=== PATIENT | male | born 1960 | race Two or more races ===

== ENCOUNTER 2025-04-16 09:56 | Emergency (ER) | payer OTHER ==
[~2025-04-16] VITALS: Ht 182.9 cm; Wt 127.3 kg
[2025-04-16] MEDS ORDERED: HYDR25TA2 PO (10:05)
[2025-04-16] MEDS: MORPHINE SULFATE 4 MG/ML SYRINGE IM ONE (13:14)
[2025-04-16] MEDS: MORPHINE SULFATE 4 MG/ML SYRINGE IVP ONE (16:08)
[2025-04-16] MEDS: ONDANSETRON HCL 4 MG/2 ML VIAL IVP ONE (16:09)
[2025-04-16] MEDS: KETOROLAC TROMETHAMINE 30 MG/ML VIAL IVP ONE (16:09)
[2025-04-16] MEDS ORDERED: NAPR-1196 PO (18:30)
[2025-04-16] MEDS ORDERED: LIDO-57 TP (18:30)
[2025-04-16] MEDS: LIDOCAINE 5% TRANSDERMAL PATCH TD ONE (18:33)
[2025-04-16] MEDS ORDERED: PERCT PO ×2 (19:02→20:19)
[2025-04-16 19:10] VITALS: BP 145/102; PULSE 89; RESP 19; TEMP 97.3; O2SAT 100
== END 2025-04-16 20:50 | disposition home or self-care (01) ==
LOC: EMS 09:56
DX: S70.01XA Contusion of right hip, initial encounter (principal); Z02.6 Encounter for examination for insurance purposes; I10 Essential (primary) hypertension; Z79.899 Other long term (current) drug therapy; W03.XXXA Other fall on same level due to collision with another person, initial encounter; Y93.89 Activity, other specified; Y92.89 Other specified places as the place of occurrence of the external cause; Y99.0 Civilian activity done for income or pay
CPT/HCPCS: 99285; 96374; 73700; 96375; 73521; 73552; J1885; J2270; J2405